=== PATIENT | female | born 1985 | race Caucasian/White ===

== ENCOUNTER 2024-04-15 09:12 | Outpatient (AMB) | payer MEDICAID, SELFPAY ==
[2024-04-15 09:32] VITALS: BP 138/83; PULSE 74; RESP 18; TEMP 36.7; O2SAT 99; BMI 27.0
--- NOTE | 2024-04-15 09:32 | GSCOFFNT_ITS ---
Vital Signs - [facility] 04/15/24 09:32 Height 1.68 m Height Method Stated Weight 75.92 kg Weight Measurement Method Standing Scale BMI 27.0 BP 138/83 H Blood Pressure Source Automatic Cuff Blood Pressure Location Right Upper Arm Position Sitting Respiration 18 Pulse 74 Pulse Source Monitor Temp 98.1 F Temp Source Temporal Artery Scan Pulse Oximetry (%) 99 Oxygen Delivery Method Room Air Med/Allergies Allergies & Medications Allergies No Known Allergies Allergy (Verified 04/15/24 09:36) Medication Reconciliation multivitamin (Multiple Vitamins tablet) 1 tab PO QDAY 04/17/19 [History Confirmed 04/15/24] docusate sodium 100 mg capsule (Colace) 100 mg PO BID #60 caps 04/18/19 [Rx Confirmed 04/15/24] hydrocodone 7.5 mg-acetaminophen 325 mg tablet ([place]) 1 tab PO Q6H PRN pain #20 tabs 04/18/19 [Rx Confirmed 04/15/24] ibuprofen 600 mg tablet 600 mg PO Q8HR PRN pain (scale score 4-6) #20 tabs 04/18/19 [Rx Confirmed 04/15/24] cephalexin 500 mg capsule (Keflex) 500 mg PO Q12H #10 caps 02/20/20 [Rx Confirmed 04/15/24] MA Intake Visit Data Collection New Patient or Established: New Patient (never been to [facility]) Seen by Clinical Staff ONLY (RN/MA): No Reason for Visit:: RECTAL ABSCESS Pain Present Currently: No Pain scale:: 0 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 PCP or OBGYN visit in last 3 months: Yes Hx Now: No Do You Feel Safe at Home: Yes Authorities Contacted: N/A Smoking Status Smoking Status: Never smoker Immunization / Flu Flu Vaccine in the Last 12 Months: No Flu Vaccine Exclusion Criteria: Refused by Patient Past Medical History Past Medical History NEUROLOGIC: Positive Neurological Disorders and Migraine (TAKES OTC); Negative Seizures CARDIAC: Negative Cardiac Disorders or Congestive Heart Failure RESPIRATORY: Negative Chronic Obstructive Pulmonary Disease (COPD) or Asthma GASTROINTESTINAL: Negative Gastrointestinal Disorders or Hepatitis GENITOURINARY: Negative Genitourinary Disorders or Renal Disease REPRODUCTIVE: Positive Previous Pregnancies (X4) ENDOCRINE: Negative Endocrine Disorders, Diabetes Mellitus Type 1 or Diabetes Mellitus Type 2 HEMATOLOGIC: Negative Blood Disorders or Sickle Cell Disease OTHER HISTORY: Positive Shingles (2017) and Chicken Pox; Negative Hospitalization, Autoimmune Disease, Falls, Blood Transfusions, Blood Transfusion Reaction, Anesthesia Reactions, Chemotherapy, Radiation Therapy, MRSA, Measles, Mumps or Cancer Family History FAMILY HISTORY: Positive Family Surgery (FATHER,MOTHER); Negative Family Psychiatric Problems, Family Respiratory Disorders, Family Cardiac Disorders, Family Gastrointestinal Problems, Family Cancer or Family Anesthesia Reaction Surgical History SURGICAL: Negative Section Social History SMOKING STATUS: Smoking status: Never smoker ALCOHOL: Alcohol Intake: Never HOUSING: Housing: House LIVES WITH: Lives With: Spouse HPI HPI Narrative 38F presenting with intermittent perianal drainage. Pt states that for the past 2.5 months she has noted new perianal drainage at the posterior midline of the anus; when it drains it tends to be small-volume and purulent, and she has not noticed any relationship to her BMs as they are generally soft, without any straining. She states there are times when they are becomes swollen and painful, and then it spontaneously drains. Pt is not aware of any inciting factor and has no history of similar symptoms; she states it began as a bulge to the area which she assumed was a hemorrhoid. Pt took sitz baths which provided relief and states she has not had drainage for the past 2 weeks. She has never had a colonoscopy PMH: None PSHx: Umbilical hernia repair Meds: None Allergies: Cipro Social hx: Nonsmoker Family hx: No known CRC ROS Review of Systems Systems Reviewed: All systems reviewed, normal except as documented Objective/Exam General General Appearance: alert, cooperative and well groomed Resp Respiratory exam: Absent respiratory distress External exam: Present other (at posterior midline of the anus there is a small area of induration and tenderness, no active drainage, no fluctuance. MARKY normal with no expression of pus from posterior midline ) Assessment & Plan Diagnosis / Problem List (1) Perianal fistula: Status: Acute Assessment & Plan: 38F presenting with 2 month history of intermittent perianal drainage, likely representing a perianal fistula. As her drainage is intermittent I explained that one option for non-surgical management is application of silver nitrate, which could help manage symptoms although may not necessarily be curative. I also explained that if drainage persists she may require surgical treatment which would likely be two stages, seton placement and fistulotomy, and enumerated risks including recurrence and incontinence. Pt expressed understanding and would like time to consider these options, will follow up in 6 weeks but is encouraged to reach out sooner if symptoms become bothersome Office Procedures GNS Level of Care Nursing/Assessment Patient Status: Initial/New Patient Nursing Assessment/Reassesment: Medication Reconciliation, Update PMH in EMR and Vital Signs Coordination of Care: Complex Care and Chronic Disease 1-5, Education Complex Pt/Fam, Consent,records obtained, informed consent, 1 Ins Authorization, Results/Orders obtained and Staff clarify orders New Patient Charge New Patient Point Assignment: [id number] New Patient Point Charge: TRANSPORTATION JOB TITLES Level 3 ([id number]) Patient Portal Questionaires Social History Living Situation History Housing: House Tobacco History Smoking Status: Never smoker Alcohol History Alcohol Intake: Never Domestic Abuse History Do You Feel Safe at Home: Yes Review of Systems Report any current symptoms Only answer those that you have currently: Past Medical History Past Medical History Have you ever been diagnosed with any of the following: Neurological Problems Seizures: No Migraine: Yes (TAKES OTC) Cardiology Problems Congestive Heart Failure: No Respiratory Problems Chronic Obstructive Pulmonary Disease (COPD): No Asthma: No Stomache/Intestinal Problems Hepatitis: No Genital/Urinary Problems Renal Disease: No Reproductive Problems Previous Pregnancies: Yes (X4) Endocrine Problems Diabetes Mellitus Type 1: No Diabetes Mellitus Type 2: No Blood Problems Sickle Cell Disease: No Other Problems Hospitalization: No Autoimmune Disease: No Shingles: Yes (2017) Falls: No Blood Transfusions: No Blood Transfusion Reaction: No Anesthesia Reactions: No Chemotherapy: No Radiation Therapy: No MRSA: No Chicken Pox: Yes Measles: No Mumps: No Cancer: No
== END 2024-04-15 10:12 | disposition home or self-care (01) ==
LOC: HODSRG 09:12
PROVIDERS: Supervising Provider Surgery; Visit Provider Surgery
DX: K60.30 Anal fistula, unspecified (principal)
CPT/HCPCS: 99203; G0463

== ENCOUNTER 2024-10-28 12:29 | Emergency (ER) | payer MEDICAID, SELFPAY ==
[2024-10-28 12:30] VITALS: BMI 23.6
--- NOTE | 2024-10-28 12:54 | EKG_ITS ---
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
[2024-10-28 12:58] VITALS: BP 135/88; PULSE 78; RESP 18; TEMP 36.7; O2SAT 99
--- NOTE | 2024-10-28 13:04 | XR_ITS ---
Examination: PA lateral chest 2 views TECHNIQUE: Upright PA lateral chest 2 views Date and time: October 28, 2024 1341 hours INDICATIONS: Shortness of breath chest pain beginning 2 days ago. FINDINGS: Pneumonia left base obscuring detail left hemidiaphragm Normal heart size Right lung clear Intact osseous structures IMPRESSION: Left base pneumonia
--- NOTE | 2024-10-28 13:04 | PD.EDRME ---
Rapid Medical Screening Exam RME Arrival date/time: 10/28/24 12:29 38-year-old female presents emergency department today for complaint of chest pain Chief Complaint: Arrhythmia/Palpitations Vital signs: Vital Signs Temperature 98.0 F 10/28/24 12:58 Pulse Rate 78 10/28/24 12:58 Respiratory Rate 18 10/28/24 12:58 Blood Pressure 135/88 H 10/28/24 12:58 Pulse Oximetry (%) 99 10/28/24 12:58 Oxygen Delivery Method Room Air 10/28/24 12:58
[2024-10-28 14:29] LABS: Basophils % (Auto) 0 % (0-2.5); Eosinophils % (Auto) 0 % (0-10); Hematocrit 37.8 % (36.0-46.0); Hemoglobin 12.6 g/dL (12.0-16.0); Immature Granulocytes % (Auto) 0 % (0-0); Immature Granulocytes Auto 0.02 Thou/mm3 (0.00-0.00); Lymphocytes % (Auto) 14 % (10-50); Mean Corpuscular HGB Conc 33.3 g/dl (31.0-37.0); Mean Corpuscular Hemoglobin 27.7 pg (25.0-35.0); Mean Corpuscular Volume 83 fL (80-100); Monocytes # (Auto) 0.4 Thou/mm3 (0.0-0.8); Monocytes % (Auto) 5 % (0-12); Neutrophils % (Auto) 80 % (37-80); Nucleated Red Blood Cell % 0 /100 WBC (0); Platelet Count 184 Thou/mm3 (140-440); RDW Standard Deviation 43.3 fL (36.4-46.3); Red Blood Count 4.55 Miln/mm3 (4.00-5.20); White Blood Count 7.6 Thou/mm3 (3.6-11.0)
[2024-10-28 15:03] LABS: Alanine Aminotransferase 24 U/L (10-49); Albumin, Serum 4.6 gm/dL (3.5-5.0); Albumin/Globulin Ratio 1.8 (1.2-2.2); Alkaline Phosphatase 40 U/L (46-116); Anion Gap 10 (7-16); Aspartate Amino Transferase 22 U/L (0-34); BUN/Creatinine Ratio 16 Ratio (12-20); Bilirubin,Total 0.7 mg/dL (0.3-1.2); Blood Urea Nitrogen 13 mg/dL (9-23); Calcium 9.5 mg/dL (8.3-10.6); Calcium (Corrected) 9.5 mg/dL (8.5-10.1); Carbon Dioxide 26.7 mMol/L (20.0-31.0); Chloride 104 mMol/L (98-107); Creatinine (Component) 0.8 mg/dL (0.6-1.3); Estimated Creatinine Clearance 101.1 mL/min (>60); Free T4 (Free Thyroxine) 1.37 ng/dL (0.89-1.76); Globulin 2.5 gm/dL (2.3-3.5); Glucose 118 mg/dL (74-106); Osmolality,Calculated 282 (275-295); Potassium 3.8 mMol/L (3.4-5.1); Sodium 141 mMol/L (136-145); Thyroid Stimulating Hormone 0.83 uIU/mL (0.55-4.78); Total Protein 7.1 gm/dL (5.7-8.2); Troponin I < 0.020 ng/mL (0.0-0.045); eGFR > 60 See Note
[2024-10-28 15:43] LABS: HCG,Qualitative Serum Negative
--- NOTE | 2024-10-28 16:33 | XR_ITS ---
Examination: Ultrasound abdominal aorta TECHNIQUE: Miller scale sonographic images of abdominal aorta Date and time: October 28, 2024 1652 hours INDICATIONS: Abdominal pain and palpitation with pulsation in the abdomen today FINDINGS: Transverse dimension proximally aorta 2.3 cm mid aorta 2.0 cm distal aorta 1.8 cm right iliac 1.0 cm left iliac 1.1 cm IMPRESSION: Negative for abdominal aortic aneurysm
--- NOTE | 2024-10-28 16:34 | PD.EDANX ---
ED Anxiety RME/HPI General Chief Complaint: Arrhythmia/Palpitations Stated Complaint: FEELS PALPITATION, PULSING UPPER ABD W/ PAIN Time Seen by Provider: 10/28/24 13:16 Source: patient Arrival date/time: 10/28/24 12:29 Mode of arrival: ambulatory Limitations: no limitations RME / HPI RME / HPI narrative: 38-year-old female with no chronic medical history is here today with a 1 day history of palpitations, chest pain, and reports of feeling palpitations in her epigastric region. She states she has no history of anxiety but is now feeling anxious regarding this. She denies any cardiac or pulmonary history. Denies any prior surgeries. She states she does not take any medications. She has no other acute complaints. Related Data Home Medications ?Medication ?Instructions ?Recorded ?Confirmed multivitamin (Multiple Vitamins 1 tab PO QDAY 04/17/19 04/15/24 tablet) Previous Rx's ?Medication ?Instructions ?Recorded docusate sodium 100 mg capsule 100 mg PO BID #60 caps 04/18/19 (Colace) hydrocodone 7.5 mg-acetaminophen 1 tab PO Q6H PRN pain #20 tabs 04/18/19 325 mg tablet ([place]) ibuprofen 600 mg tablet 600 mg PO Q8HR PRN pain (scale 04/18/19 score 4-6) #20 tabs cephalexin 500 mg capsule (Keflex) 500 mg PO Q12H #10 caps 02/20/20 Allergies Allergy/AdvReac Type Severity Reaction Status Date / Time No Known Allergies Allergy Verified 10/28/24 12:32 Review of Systems Review of Systems Systems Reviewed: All systems reviewed, normal except as documented ED Exam General Limitations: Present no limitations General appearance: Present alert and in no apparent distress Head Head exam: Present atraumatic Eye Eye exam: Present normal appearance, PERRL and EOMI ENT ENT exam: Present normal exam, normal oropharynx and mucous membranes moist Neck Neck exam: Present normal inspection, full ROM and trachea midline Chest Chest inspection: Present normal inspection and symmetric chest wall rise Respiratory Respiratory exam: Present normal lung sounds bilaterally Cardiovascular Cardiovascular exam: Present regular rate, normal rhythm and normal heart sounds Abdominal Exam Abdominal exam: Present soft and normal bowel sounds Extremities Exam Extremities exam: Present normal inspection and full ROM Back Exam Back exam: Present normal inspection and full ROM Neurological Exam Neurological exam: Present alert, oriented X3 and CN II-XII intact Psychiatric Psychiatric exam: Present agitated and anxious Skin Skin exam: Present warm, dry, intact and normal color Course Course Course Narrative: History was obtained and physical exam was performed. We discussed her test results that were performed at the time of her triage and rapid medical exam. Her EKG is unremarkable. Chest x-ray is unremarkable. CBC, CMP, and thyroid are unremarkable. Troponin is unremarkable. Patient states she is feeling quite anxious would like to have an ultrasound performed of her abdomen. This was ordered, patient did ask how long this will take. I informed her I did not have a exact time of when her ultrasound exam would be performed however I would be able to order this and provide results as soon as they were available. I did discuss the option of having the patient seen as an outpatient for nonemergent workup. She would like to have this done now. Patient did verbalize frustration, anxiety, and discontent regarding the length of time spent in the emergency room. I did apologize for this and explained the triage process in addition to prioritization of various cases within the ER. Quality Measures none Orders Category Date Time Status EKG (ED ONLY) *Do not use* NOW Care 10/28/24 12:54 Completed EKG (ED Only) Stat Exams 10/28/24 12:54 Draft US abd aorta screen AAA Stat Exams 10/28/24 16:33 Ordered XR chest 2V Stat Exams 10/28/24 13:04 Completed CBC Stat Lab 10/28/24 14:14 Completed Comprehensive Metabolic Panel Stat Lab 10/28/24 14:14 Completed Free T4 (Free Thyroxine) Stat Lab 10/28/24 14:14 Completed HCG,Qualitative Serum Stat Lab 10/28/24 14:14 Completed TSH [Thyroid Stimulating Hormone] Stat Lab 10/28/24 14:14 Completed Troponin I Stat Lab 10/28/24 14:14 Completed Vital Signs Vital signs: Vital Signs Temperature 98.0 F 10/28/24 12:58 Pulse Rate 78 10/28/24 12:58 Respiratory Rate 18 10/28/24 12:58 Blood Pressure 135/88 H 10/28/24 12:58 Pulse Oximetry (%) 99 10/28/24 12:58 Oxygen Delivery Method Room Air 10/28/24 12:58 Anxiety MDM Narrative MDM Narrative: She is anxious 38-year-old female who is here today with concerns regarding pulsations in her abdomen and abdominal pain. Her work appears essentially benign. Patient is advised to obtain a primary care doctor for future follow-up. Return here for any worsening or emergent changes Patient data External records reviewed:: Other (specify) Clinical information provided by:: patient Social determinants that could affect healthcare access:: none Patient has the following chronic illnesses:: n/a How is presenting disease/condition affected by chronic disease/condition?: no chronic disease Evaluation data The following diagnostics were reviewed and interpreted by me:: lab results and radiology exam(s) Lab and/or radiology exams considered but not ordered:: n/a Interpretation Summary: Workup essentially unremarkable for any emergent, acute, process Medications / Prescriptions Medications or Prescriptions considered but not ordered:: n/a you take it out tomorrow tomorrow Medication administrations:: n/a Consultations Consultation(s) initiated? (list below): No Diagnosis Differential diagnosis anxiety: acute anxiety Most likely diagnosis given after review of the tests above:: Anxiety, palpitations Admission Indicated Admission indicated?: not indicated Admission Request Was there a request for admission?: No Disposition Plan Disposition Plan: Discharge Discharge Attestation Discharge Attestation: The patient and all family members were given an opportunity to ask questions and understood the discharge instructions. Discharge instructions specifically effects, indications for sooner follow up or return to the emergency department, and the expected course of current diagnosis. Patient condition: Stable Discharge Plan Plan Patient Disposition: HOME (Self Care) Patient condition on transfer: Stable Prescriptions/Referrals Prescriptions/Med Rec: No Action cephalexin [Keflex] 500 mg capsule 500 mg PO Q12H Qty: 10 0RF multivitamin [Multiple Vitamins] Tablet 1 tab PO QDAY docusate sodium [Colace] 100 mg capsule 100 mg PO BID Qty: 60 0RF hydrocodone-acetaminophen [[place]] 7.5-325 mg tablet 1 tab PO Q6H MDD 4 PRN (Reason: pain) Qty: 20 0RF ibuprofen 600 mg tablet 600 mg PO Q8HR PRN (Reason: pain (scale score 4-6)) Qty: 20 0RF Referrals: No Primary/Family,Physician [Primary Care Provider] - In 1 week Problem List Clinical Impression: Palpitations, Anxiety, Abdominal pain Patient/Caregiver Discharge Instructions Education Materials: Abdominal Pain, Anxiety Disorders Tx Therapy, ED About Arrhythmias Additional Instructions: Maintain oral hydration. Use Tylenol ibuprofen as needed for comfort. Obtain a primary clinic for close follow-up. Return as needed for any worsening or emergent changes. Print Language: Vincentian Stand Alone Forms: Bere Award Info., Patient Portal Info Letter
== END 2024-10-28 18:04 | disposition home or self-care (01) ==
PROVIDERS: Nurse Practitioner Primary Care; Emergency Provider Family Medicine
DX: R00.2 Palpitations (principal); F41.9 Anxiety disorder, unspecified; R10.9 Unspecified abdominal pain; J18.9 Pneumonia, unspecified organism
CPT/HCPCS: 36415; 71046; 76706; 80053; 84439; 84443; 84484; 84703; 85025; 93005; 99284